=== PATIENT | female | born 1990 | race African-American/Black ===

== ENCOUNTER 2017-09-12 06:34 | Emergency (ER) | payer OTHER ==
[~2017-09-12] VITALS: Ht 152.4 cm; Wt 77.1 kg
[2017-09-12] MEDS ORDERED: NOHOMEMEDICATIONS (07:16)
== END 2017-09-12 07:24 | disposition home or self-care (01) ==
LOC: ER 06:34
DX: T74.21XA Adult sexual abuse, confirmed, initial encounter (principal); Z88.0 Allergy status to penicillin; Z88.2 Allergy status to sulfonamides